=== PATIENT | female | born 1945 | race Caucasian/White ===

== ENCOUNTER 2020-01-08 12:45 | Outpatient (CLI) | payer MEDICARE, OTHER, SELFPAY ==
--- NOTE | 2020-01-08 12:57 | MM_ITS ---
WS: [id number] BILATERAL DIGITAL SCREENING MAMMOGRAPHY WITH CAD CLINICAL INFORMATION: SCREENING HISTORY: Screening mammogram. No current complaints. COMPARISON: TECHNIQUE: Bilateral CC and MLO views. FINDINGS: Scattered fibroglandular densities bilaterally. No suspicious focal mass, asymmetry, calcifications, or architectural distortion. No evidence of malignancy. Punctate calcifications. MM/[place] [id number] IMPRESSION: BI-RADS: 2-Benign FOLLOW UP: 1 Year Follow-up Recommend return to annual screening mammography.
== END 2020-01-08 12:46 | disposition home or self-care (01) ==
LOC: RADSHAW 12:51
PROVIDERS: Family Provider Physician Assistant Medical; PCP Physician Assistant Medical; Visit Provider Physician Assistant Medical
DX: Z12.31 Encounter for screening mammogram for malignant neoplasm of breast (principal)
CPT/HCPCS: 77067

== ENCOUNTER 2021-06-06 13:53 | Outpatient (CLI) | payer MEDICARE, OTHER, SELFPAY ==
--- NOTE | 2021-06-06 13:58 | MM_ITS ---
WS: [id number] BILATERAL 3D TOMOSYNTHESIS DIGITAL SCREENING MAMMOGRAPHY WITH CAD CLINICAL INFORMATION: SCREENING HISTORY: Screening mammogram. No current complaints. COMPARISON: January 08, 2020 TECHNIQUE: Bilateral CC and MLO views. FINDINGS: Scattered fibroglandular densities bilaterally. Punctate and secretory benign calcifications. Vascula r calcification. No suspicious focal mass, asymmetry, calcifications, or architectural distortion. No evidence of malignancy. MM/[place] [id number] IMPRESSION: BI-RADS: 2-Benign FOLLOW UP: 1 Year Follow-up Recommend return to annual screening mammography.
== END 2021-06-06 13:54 | disposition home or self-care (01) ==
LOC: RAD 13:55
PROVIDERS: PCP Physician Assistant Medical; Visit Provider Physician Assistant Medical
DX: Z12.31 Encounter for screening mammogram for malignant neoplasm of breast (principal)
CPT/HCPCS: 77063; 77067

== ENCOUNTER 2022-06-07 14:38 | Emergency (ER) | payer MEDICARE, OTHER, SELFPAY ==
[2022-06-07] VITALS (9 sets, daily range): BP systolic 143–169; BP diastolic 61–102; PULSE 77–90; RESP 14–20; O2SAT 93–98; BMI 21.2
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
[2022-06-07] MEDS: ondansetron 2 mg/ML SDV 2 mL 4 MG IVP (15:25)
[2022-06-07] MEDS: morphine 4 mg/mL SDV 1 mL IVP ×3 (15:27→17:45)
[2022-06-07 15:36] LABS: Basophils # 0.1 10^3/uL (0.0-0.1); Basophils % 0.3 %; Eosinophils # 0.1 10^3/uL (0.0-0.8); Eosinophils % 0.7 %; Hematocrit 31.5 % (37.0-47.0); Hemoglobin 9.5 g/dL (11.5-15.3); Lymphocytes # 1.7 10^3/uL (0.8-4.8); Lymphocytes % 10.5 %; Mean Corpuscular HGB Conc 30.2 g/dL (30.0-36.0); Mean Corpuscular Hemoglobin 24.6 pg (28.0-34.0); Mean Corpuscular Volume 81.6 fl (81-99); Mean Platelet Volume 9.7 fL (7.4-10.4); Monocytes # 0.9 10^3/uL (0.2-0.9); Monocytes % 5.8 %; Neutrophils # 13.25 10^3/uL (1.8-7.7); Neutrophils % 82.1 %; Nucleated Red Blood Cells % 0 %; Platelet Count 352 10^3/cmm (130-400); Red Blood Count 3.86 10^6/uL (4.1-5.3); Red Cell Distribution Width 17.7 % (12.1-15.1); White Blood Count 16.1 10^3/uL (4.0-10.0)
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
[2022-06-07 15:57] LABS: Alanine Aminotransferase 15 U/L (0-33); Albumin Level 4.1 g/dL (3.5-5.2); Alkaline Phosphatase 63 U/L (35-105); Blood Urea Nitrogen 18 mg/dL (8-23); Calcium 9.3 mg/dL (8.5-10.5); Carbon Dioxide 21 mmol/L (22-29); Chloride 100 mmol/L (98-107); Glucose 86 mg/dL (65-115); Osmolality Calculated 287 mOsm/kg (285-295); Sodium 138 mmol/L (136-145); Total Bilirubin 0.2 mg/dL (0.15-1.2); Total Protein 7.1 g/dL (6.6-8.7)
[2022-06-07 16:01] LABS: Anion Gap 21.1 (5-19); Potassium 4.1 mmol/L (3.5-5.1)
[2022-06-07 16:02] LABS: Aspartate Amino Transferase 23 U/L (0-32)
[2022-06-07] MEDS: iohexol 350 mg/mL 500 mL Btl (per mL) IV (17:13)
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
[2022-06-07 18:20] LABS: Glucose Point of Care 108 mg/dL (70-110)
[2022-06-07] MEDS: ceFAZolin 1,000 MG in sodium chloride 0.9% (plus) 50 ML 100 MG IV (18:20)
[2022-06-07] MEDS: tetanus-dipt-pertussis 0.5 mL SDV IM (18:28)
--- NOTE | 2022-06-07 19:16 | PC.NURSE ---
Report called to TONY Flores at [facility]
[2022-06-07] MEDS: fentaNYL 50 mcg/mL INJ 2mL 25 MCG IVP (20:35)
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
[2022-06-07 21:32] LABS: Add Urine Microscopic? NO; Charge for UA Resulting for Rev
[2022-06-07 21:46] LABS: Blood Urine Neg (Negative); Nitrate Urine Negative (Negative); Protein Urine Neg (Negative); Urine Appearance Clear (CLEAR); Urine Color Light yellow (Yellow); pH Urine 8 (5-7)
[2022-06-07 21:47] LABS: Bilirubin Urine Neg (Negative); Glucose Urine UA 1+ (Normal); Ketones Urine 1+ (Negative); Leukocyte Esterase Urine Negative (Negative); Sulfosalicylic Acid Urine Negative (Negative); Urobilinogen Urine Norm (Negative)
[2022-06-09 09:28] LABS: Glucose Point of Care 200 mg/dL (70-110)
== END 2022-06-07 21:14 | disposition short-term general hospital (02) ==
PROVIDERS: Emergency Provider Family Medicine; PCP Physician Assistant Medical
DX: S62.327A Displaced fracture of shaft of fifth metacarpal bone, left hand, initial encounter for closed fracture (principal); S52.502A Unspecified fracture of the lower end of left radius, initial encounter for closed fracture; S52.692A Other fracture of lower end of left ulna, initial encounter for closed fracture; S62.292A Other fracture of first metacarpal bone, left hand, initial encounter for closed fracture; S50.812A Abrasion of left forearm, initial encounter; S50.811A Abrasion of right forearm, initial encounter; V89.2XXA Person injured in unspecified motor-vehicle accident, traffic, initial encounter; Z23 Encounter for immunization
CPT/HCPCS: 36416; 70450; 71260; 72125; 73090; 73110; 73130; 74177; 80053; 81003; 82962; 85025; 90471; 90715; 96365; 96375; 96376; 99285; J0690; J2270; J2405; J3010; Q9967

== ENCOUNTER → 2022-08-07 17:34 | Outpatient (BNVA) | payer MEDICARE, OTHER, SELFPAY | PROVIDERS: PCP Physician Assistant Medical; Visit Provider Internal Medicine | DX: E11.649 Type 2 diabetes mellitus with hypoglycemia without coma (principal); E78.2 Mixed hyperlipidemia; Z79.4 Long term (current) use of insulin | CPT/HCPCS: 36415; 80053; 80061; 82044; 83036; 84681; 86337; 86341; 99204 ==

== ENCOUNTER 2022-08-10 19:06 | Inpatient (IN) | payer MEDICARE, OTHER, SELFPAY ==
[2022-08-10] VITALS (21 sets, daily range): BP systolic 119–136; BP diastolic 46–68; PULSE 81–93; RESP 14–31; TEMP 36.6; O2SAT 96–99; BMI 21.4
[2022-08-10 19:56] LABS: Glucose Point of Care 226 mg/dL (70-110)
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
[2022-08-10 21:52] LABS: Glucose Point of Care 307 mg/dL (70-110)
[2022-08-10 21:56] LABS: Alanine Aminotransferase 13 U/L (0-33); Albumin Level 3.7 g/dL (3.5-5.2); Alkaline Phosphatase 102 U/L (35-105); Aspartate Amino Transferase 19 U/L (0-32); Blood Urea Nitrogen 22 mg/dL (8-23); Calcium 9.1 mg/dL (8.5-10.5); Carbon Dioxide 12 mmol/L (22-29); Chloride 97 mmol/L (98-107); Globulin 2.8 g/dL (1.3-4.6); Glucose 252 mg/dL (65-115); Magnesium 1.8 mg/dL (1.7-2.3); Osmolality Calculated 282 mOsm/kg (285-295); Phosphorus 3.3 mg/dL (2.5-4.5); Sodium 130 mmol/L (136-145); Total Bilirubin 0.3 mg/dL (0.15-1.2); Total Protein 6.5 g/dL (6.6-8.7)
[2022-08-10] MEDS: ALPRAZolam 0.5 mg Tablet PO (21:57)
[2022-08-10 21:58] LABS: Anion Gap 25.7 (5-19); Potassium 4.7 mmol/L (3.5-5.1)
[2022-08-10] MEDS: oxyCODONE 5 mg IR Tab/Cap PO (23:09)
[2022-08-10] MEDS: insulin regular-human 250 UNIT in sodium chloride 0.9% 250 ML 5.59 UNIT IV (23:19)
[2022-08-10] MEDS: dextrose 5%-sod chloride 0.45% 1,000 ML 75 ML IV (23:20)
[2022-08-11] VITALS (68 sets, daily range): BP systolic 90–168; BP diastolic 42–119; PULSE 68–95; RESP 7–37; TEMP 36.1–36.8; O2SAT 75–100
[2022-08-11 00:25] LABS: Glucose Point of Care 292 mg/dL (70-110)
[2022-08-11 01:32] LABS: Glucose Point of Care 233 mg/dL (70-110)
[2022-08-11 02:27] LABS: Blood Urea Nitrogen 23 mg/dL (8-23); Calcium 9.4 mg/dL (8.5-10.5); Carbon Dioxide 14 mmol/L (22-29); Chloride 100 mmol/L (98-107); Glucose 192 mg/dL (65-115); Osmolality Calculated 281 mOsm/kg (285-295); Sodium 131 mmol/L (136-145)
[2022-08-11 02:30] LABS: Anion Gap 20.9 (5-19); Potassium 3.9 mmol/L (3.5-5.1)
[2022-08-11 02:35] LABS: Glucose Point of Care 186 mg/dL (70-110)
[2022-08-11 03:58] LABS: Glucose Point of Care 128 mg/dL (70-110)
[2022-08-11 04:36] LABS: Basophils % 0.3 %; Eosinophils % 0.3 %; Hematocrit 26.1 % (37.0-47.0); Lymphocytes # 3.6 10^3/uL (0.8-4.8); Mean Corpuscular HGB Conc 30.7 g/dL (30.0-36.0); Mean Corpuscular Hemoglobin 25.6 pg (28.0-34.0); Mean Corpuscular Volume 83.4 fl (81-99); Mean Platelet Volume 9.3 fL (7.4-10.4); Monocytes # 1.2 10^3/uL (0.2-0.9); Monocytes % 10.6 %; Neutrophils # 6.29 10^3/uL (1.8-7.7); Neutrophils % 56.5 %; Nucleated Red Blood Cells % 0 %; Platelet Count 270 10^3/cmm (130-400); Red Blood Count 3.13 10^6/uL (4.1-5.3); Red Cell Distribution Width 15.2 % (12.1-15.1); White Blood Count 11.1 10^3/uL (4.0-10.0)
[2022-08-11 04:48] LABS: Glucose Point of Care 123 mg/dL (70-110)
[2022-08-11 04:49] LABS: Alanine Aminotransferase 12 U/L (0-33); Albumin Level 3.5 g/dL (3.5-5.2); Alkaline Phosphatase 94 U/L (35-105); Anion Gap 13.6 (5-19); Aspartate Amino Transferase 16 U/L (0-32); Blood Urea Nitrogen 22 mg/dL (8-23); Calcium 9.3 mg/dL (8.5-10.5); Carbon Dioxide 21 mmol/L (22-29); Chloride 103 mmol/L (98-107); Globulin 2.6 g/dL (1.3-4.6); Glucose 110 mg/dL (65-115); Magnesium 1.9 mg/dL (1.7-2.3); Osmolality Calculated 282 mOsm/kg (285-295); Phosphorus 2.6 mg/dL (2.5-4.5); Potassium 3.6 mmol/L (3.5-5.1); Sodium 134 mmol/L (136-145); Total Bilirubin 0.4 mg/dL (0.15-1.2); Total Protein 6.1 g/dL (6.6-8.7)
[2022-08-11] MEDS: insulin glargine 100 units/1 mL 20 UNIT SUBCUT (05:37)
[2022-08-11 05:57] LABS: Glucose Point of Care 113 mg/dL (70-110)
[2022-08-11 06:21] LABS: Glucose Point of Care 100 mg/dL (70-110)
[2022-08-11 07:20] LABS: Glucose Point of Care 85 mg/dL (70-110)
--- NOTE | 2022-08-11 09:11 | PC.PHAR ---
pt states she takes care of her own medications-pt states she had been taking oxycodone 5mg q6h prn-[facility] states they havent filled that for the pt states last filled norco 5-325mg 1 tab q6h prn rx filled #28 filled 01/15/22 7d/s-pt states the dr soto her metformin 500mg take 2 tabs bid filled 05/23/22 90d/s and glipizide 10mg take 2 tabs bid filled 05/23/22 90d/s
[2022-08-11 10:57] LABS: Glucose Point of Care 311 mg/dL (70-110)
[2022-08-11] MEDS: insulin lispro 100 unit/1 mL SUBCUT ×2 (11:52→17:17)
[2022-08-11] MEDS: sodium chloride 0.9% 1,000 ML 75 ML IV (12:40)
[2022-08-11 12:58] LABS: Anion Gap 17.4 (5-19); Blood Urea Nitrogen 18 mg/dL (8-23); Calcium 8.9 mg/dL (8.5-10.5); Carbon Dioxide 19 mmol/L (22-29); Chloride 100 mmol/L (98-107); Glucose 272 mg/dL (65-115); Osmolality Calculated 286 mOsm/kg (285-295); Potassium 4.4 mmol/L (3.5-5.1); Sodium 132 mmol/L (136-145)
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
[2022-08-11 16:19] LABS: Glucose Point of Care 160 mg/dL (70-110)
--- NOTE | 2022-08-11 17:26 | PC.NURSE ---
Addendum entered by Ember Houston RN 08/11/22 17:56: Patients ride just arrived. Original Note: Discharge education reviewed with patient and in depth detail education on sliding scale for insulin. Verbally acknowledges discharge plans.
== END 2022-08-11 17:57 | disposition home or self-care (01) | DRG 639 ==
PROVIDERS: Internal Medicine; Student in an Organized Health Care Education/Training Program; Admitting Provider Internal Medicine; PCP Physician Assistant Medical; Visit Provider Student in an Organized Health Care Education/Training Program
DX: E11.10 Type 2 diabetes mellitus with ketoacidosis without coma (principal); E78.5 Hyperlipidemia, unspecified; F41.8 Other specified anxiety disorders; Z79.82 Long term (current) use of aspirin; Z79.891 Long term (current) use of opiate analgesic
CPT/HCPCS: 36415; 36416; 80048; 80053; 80061; 82044; 82962; 83036; 83735; 84100; 84681; 85025; 86337; 86341; 96372; 99204; 99291; J1815; J7030; J7050; J7799

== ENCOUNTER → 2022-08-21 13:13 | Outpatient (BNVA) | payer MEDICARE, OTHER, SELFPAY | PROVIDERS: PCP Physician Assistant Medical; Visit Provider Internal Medicine | DX: E10.10 Type 1 diabetes mellitus with ketoacidosis without coma (principal); E10.649 Type 1 diabetes mellitus with hypoglycemia without coma; Z79.4 Long term (current) use of insulin; E78.2 Mixed hyperlipidemia | CPT/HCPCS: 99214 ==

== ENCOUNTER → 2022-10-23 13:26 | Outpatient (BNVA) | payer MEDICARE, OTHER, SELFPAY | PROVIDERS: PCP Physician Assistant Medical; Visit Provider Internal Medicine | DX: E78.2 Mixed hyperlipidemia (principal); E10.649 Type 1 diabetes mellitus with hypoglycemia without coma; Z79.4 Long term (current) use of insulin | CPT/HCPCS: 36415; 80053; 80061; 82044; 83036; 99214 ==

== ENCOUNTER → 2022-11-14 08:34 | Outpatient (BNVA) | payer MEDICARE, OTHER, SELFPAY | PROVIDERS: PCP Registered Nurse; Visit Provider Internal Medicine | DX: E78.2 Mixed hyperlipidemia; E10.649 Type 1 diabetes mellitus with hypoglycemia without coma; Z79.4 Long term (current) use of insulin | CPT/HCPCS: 99214 ==

== ENCOUNTER → 2023-03-19 09:13 | Outpatient (BNVA) | payer MEDICARE, OTHER, SELFPAY | PROVIDERS: PCP Registered Nurse; Visit Provider Podiatrist Foot & Ankle Surgery | DX: L60.3 Nail dystrophy (principal); G62.9 Polyneuropathy, unspecified; E10.42 Type 1 diabetes mellitus with diabetic polyneuropathy; E10.44 Type 1 diabetes mellitus with diabetic amyotrophy; Z79.4 Long term (current) use of insulin | CPT/HCPCS: 11721; 99203 ==

== ENCOUNTER 2023-06-05 11:59 | Outpatient (CLI) | payer MEDICARE, OTHER, SELFPAY ==
--- NOTE | 2023-06-05 12:02 | MM_ITS ---
WS: [id number] BILATERAL 3D TOMOSYNTHESIS DIGITAL SCREENING MAMMOGRAPHY WITH CAD CLINICAL INFORMATION: SCREENING HISTORY: Screening mammogram. No current complaints. COMPARISON: 2021 TECHNIQUE: Bilateral CC and MLO views. FINDINGS: Scattered fibroglandular densities bilaterally. No suspicious focal mass, asymmetry, calcifications, or architectural distortion. No evidence of malignancy. Incidental punctate and lucent centered calci fications. Secretory calcifications. Vascular calcifications. IMPRESSION: MM/[place] [id number] BI-RADS: 2-Benign FOLLOW UP: 1 Year Follow-up Recommend return to annual screening mammography.
== END 2023-06-05 12:00 | disposition home or self-care (01) ==
LOC: RAD 12:00
PROVIDERS: PCP Registered Nurse; Visit Provider Registered Nurse
DX: E10.42 Type 1 diabetes mellitus with diabetic polyneuropathy (principal); Z12.31 Encounter for screening mammogram for malignant neoplasm of breast; L60.3 Nail dystrophy; R92.323 Mammographic fibroglandular density, bilateral breasts; G62.9 Polyneuropathy, unspecified; Z79.4 Long term (current) use of insulin; E10.10 Type 1 diabetes mellitus with ketoacidosis without coma; E10.649 Type 1 diabetes mellitus with hypoglycemia without coma; E78.2 Mixed hyperlipidemia
CPT/HCPCS: 11721; 77063; 77067; 99214

== ENCOUNTER → 2023-08-15 10:09 | Outpatient (BNVA) | payer MEDICARE, OTHER, SELFPAY | PROVIDERS: PCP Registered Nurse; Visit Provider Podiatrist Foot & Ankle Surgery | DX: M79.672 Pain in left foot (principal); M21.622 Bunionette of left foot; E10.42 Type 1 diabetes mellitus with diabetic polyneuropathy; L60.3 Nail dystrophy; G62.9 Polyneuropathy, unspecified; Z79.4 Long term (current) use of insulin | CPT/HCPCS: 73630; 99213 ==

== ENCOUNTER 2023-09-12 08:00 | Outpatient (CLI) | payer MEDICARE, OTHER, SELFPAY ==
[2023-09-12 08:56] LABS: Estmated Average Glucose 206; Hemoglobin A1C 8.8 % (4.0-6.0)
[2023-09-12 09:02] LABS: Alanine Aminotransferase 15 U/L (0-33); Albumin Level 4.2 g/dL (3.5-5.2); Alkaline Phosphatase 113 U/L (35-105); Anion Gap 17.2 (5-19); Aspartate Amino Transferase 16 U/L (0-32); Blood Urea Nitrogen 18 mg/dL (8-23); Calcium 9.5 mg/dL (8.5-10.5); Carbon Dioxide 25 mmol/L (22-29); Chloride 102 mmol/L (98-107); Chol HDL Ratio 2.43 mg/dL (0.0-4.40); Cholesterol 204 mg/dL (0-200); Globulin 3.2 g/dL (1.3-4.6); Glucose 236 mg/dL (65-115); HDL Cholesterol 84 mg/dL (60-100); LDL Cholesterol Calculated 106 mg/dL (50-129); LDL HDL Ratio 1.26 RATIO (0.00-3.22); Osmolality Calculated 300 mOsm/kg (285-295); Potassium 4.2 mmol/L (3.5-5.1); Sodium 140 mmol/L (136-145); Total Bilirubin 0.3 mg/dL (0.15-1.2); Total Protein 7.4 g/dL (6.6-8.7); Triglycerides 69 mg/dL (0-150)
[2023-09-12 09:16] LABS: Creatinine Urine, Random 61 mg/dL (28-217); Microalbum Creatinine Ratio Ur 16 mg/dL (0-20); Microalbumin Random Urine 1 ug/dL (0-20)
== END 2023-09-12 08:01 | disposition home or self-care (01) ==
LOC: LAB 08:03
PROVIDERS: PCP Registered Nurse; Visit Provider Internal Medicine
DX: E78.2 Mixed hyperlipidemia (principal); E10.9 Type 1 diabetes mellitus without complications; E16.2 Hypoglycemia, unspecified
CPT/HCPCS: 36415; 80053; 80061; 82044; 83036

== ENCOUNTER → 2023-12-03 09:19 | Outpatient (BNVA) | payer MEDICARE, OTHER, SELFPAY | PROVIDERS: PCP Registered Nurse; Visit Provider Podiatrist Foot & Ankle Surgery | DX: M21.622 Bunionette of left foot; L60.3 Nail dystrophy; G62.9 Polyneuropathy, unspecified; E10.42 Type 1 diabetes mellitus with diabetic polyneuropathy; Z79.4 Long term (current) use of insulin; E10.10 Type 1 diabetes mellitus with ketoacidosis without coma; E10.649 Type 1 diabetes mellitus with hypoglycemia without coma | CPT/HCPCS: 99213; 99214 ==

== ENCOUNTER → 2024-03-24 08:59 | Outpatient (BNVA) | payer MEDICARE, OTHER, SELFPAY | PROVIDERS: PCP Registered Nurse; Visit Provider Internal Medicine | DX: E10.9 Type 1 diabetes mellitus without complications; E78.2 Mixed hyperlipidemia; E16.2 Hypoglycemia, unspecified | CPT/HCPCS: 99214 ==

== ENCOUNTER → 2024-08-05 10:05 | Outpatient (BNVA) | payer MEDICARE, SELFPAY | PROVIDERS: PCP Registered Nurse; Visit Provider Internal Medicine | DX: E10.9 Type 1 diabetes mellitus without complications (principal); E16.2 Hypoglycemia, unspecified; E78.2 Mixed hyperlipidemia | CPT/HCPCS: 99214 ==